=== PATIENT | male | born 1955 | race African-American/Black ===

== ENCOUNTER 2017-06-06 16:34 | Emergency (ER) | payer MEDICAID ==
[~2017-06-06] VITALS: Ht 175.3 cm; Wt 86.0 kg
[2017-06-06] MEDS ORDERED: SIMV20TA6 PO (16:44)
[2017-06-06] MEDS ORDERED: TAMS0.4C31 PO (16:44)
[2017-06-06] MEDS ORDERED: HYDR25TA PO (16:44)
[2017-06-06] MEDS ORDERED: AMLO10TA80 PO (16:44)
[2017-06-06] MEDS ORDERED: FURO40TA5 PO (16:44)
[2017-06-06] MEDS ORDERED: HYDR-4135 PO (16:44)
[2017-06-06] MEDS ORDERED: ASPI-1159 PO (16:44)
[2017-06-06] MEDS ORDERED: METO25TA6 PO (16:44)
[2017-06-06] MEDS ORDERED: GLIM2TAB2 PO (16:44)
[2017-06-06] MEDS ORDERED: LISI-604 PO (16:44)
[2017-06-06] MEDS ORDERED: HYDRALAZINE HCL 50MG TABLET PO ONE (18:00)
[2017-06-06 18:34] LABS: BASOPHILS % 1.1 % (0.0-2.0); EOSINOPHILS % 4.3 % (0.0-5.0); HEMOGLOBIN. 9.6 g/dL (14.0-18.0); MEAN CORPUSCULAR HEMOGLOBIN 29.5 pg (28.0-32.0); MEAN CORPUSCULAR VOLUME 88.9 fL (80.0-94.0); MEAN PLATELET VOLUME 8.5 fl (7.4-10.4); MONOCYTES % 11.6 % (2.0-8.0); PLATELET 170 x1000/uL (130-400); RED BLOOD CELL COUNT 3.26 mill/uL (4.7-6.1); RED CELL DISTRIBUTION WIDTH 16.3 % (11.6-14.6)
[2017-06-06 20:19] VITALS: BP 170/74
== END 2017-06-06 20:31 | disposition home or self-care (01) ==
LOC: ER 20:25
DX: I13.2 Hypertensive heart and chronic kidney disease with heart failure and with stage 5 chronic kidney disease, or end stage renal disease (principal); I50.9 Heart failure, unspecified; N18.6 End stage renal disease; E11.22 Type 2 diabetes mellitus with diabetic chronic kidney disease; Z99.2 Dependence on renal dialysis; Z79.82 Long term (current) use of aspirin; Z95.828 Presence of other vascular implants and grafts
CPT/HCPCS: 36415; 80048; 85025; 99284

== ENCOUNTER → 2017-07-05 | Day surgery (SDC) | payer MEDICAID ==
[~2017-07-05] VITALS: Ht 175.3 cm; Wt 78.6 kg
[~2017-07-05] MED LIST: AMLO10TA80 PO; ASPI-1159 PO; BACITRACIN 50,000 UNITS/VIAL ONE; BACITRACIN ZINC 15GM TUBE TOP ONE; BUPIVACAINE HCL/PF 0.5% (5MG/ML) 10ML ONE; CEFAZOLIN SODIUM 1000MG/VIAL ONE; DEXAMETHASONE 4MG/ML 1ML VIAL ONE; FURO40TA5 PO; GELATIN SPONGE,ABSORBABLE SZ 100 ONE; GLIM2TAB2 PO; GLYCOPYRROLATE 0.2 MG/ML 2ML VIAL ONE; HEPARIN SODIUM 1,000 UNIT/1ML VIAL IV NR; HEPARIN SODIUM 1,000 UNIT/1ML VIAL IV ONE; HYDR-4135 PO; HYDR25TA PO; HYDROMORPHONE HCL/PF 2MG/ML CPJ IV PRN; LABETALOL HCL 20MG/4ML CARPUJECT IV PRN; LIDOCAINE HCL 1% 20ML VIAL (Pyxis) INJ ONE; LISI-604 PO; MEPERIDINE HCL/PF 25MG/ML CPJ IV PRN; METO25TA6 PO; NORMAL SALINE 0.9% 10 ML SYR ONE; ONDANSETRON HCL 4MG/2ML VIAL IV PRN; SIMV20TA6 PO; SODIUM CHLORIDE 0.9% 500 ML IV ONE; TAMS0.4C31 PO; THROMBIN (BOVINE) 5000 UNITS/VIAL TOP ONE
[2017-07-05 06:42] LABS: PARTIAL THROMBOPLASTIN TIME 29.1 sec (23.4-31.0); PROTHROMBIN TIME 10.7 sec (9.4-11.6)
[2017-07-05 06:51] LABS: BASOPHILS % 1.1 % (0.0-2.0); EOSINOPHILS % 6.1 % (0.0-5.0); HEMATOCRIT. 41.6 % (42.0-52.0); HEMOGLOBIN. 13.7 g/dL (14.0-18.0); MEAN CORPUSCULAR HEMOGLOBIN 30.7 pg (28.0-32.0); MEAN CORPUSCULAR VOLUME 93.3 fL (80.0-94.0); MEAN PLATELET VOLUME 8.8 fl (7.4-10.4); MONOCYTES % 9.6 % (2.0-8.0); NEUTROPHILS % 65.2 % (40.0-76.0); PLATELET 167 x1000/uL (130-400); RED BLOOD CELL COUNT 4.45 mill/uL (4.7-6.1); RED CELL DISTRIBUTION WIDTH 16.9 % (11.6-14.6)
== END | disposition home or self-care (01) ==
LOC: OR 05:37
PROVIDERS: ATTEND Surgery Vascular Surgery
DX: N18.9 Chronic kidney disease, unspecified (principal)
CPT/HCPCS: 36415; 36821; 80048; 85025; 85610; 85730; 93005; A4216; J0690; J1100; J1644; J3490; J7040